=== PATIENT | female | born 1990 | race Hispanic/Latino ===

== ENCOUNTER 2017-01-20 19:00 | Inpatient (IN) | payer MEDICAID ==
[2017-01-20] MEDS ORDERED: POLYCILLIN/NS 2 GM/100 ML 2 GM/100 ML BAG IV ONE (19:14)
[2017-01-20] MEDS ORDERED: BRETHINE SUB-Q PRN (19:14)
[2017-01-20] MEDS ORDERED: MINERAL OIL PO PRN (19:14)
[2017-01-20] MEDS ORDERED: SUBLIMAZE IV PRN (19:14)
[2017-01-20] MEDS ORDERED: ePHEDrine SULFATE IV PRN ×2 (19:14→21:37)
[2017-01-20] MEDS ORDERED: ZOFRAN IV PRN (19:14)
[2017-01-20] MEDS ORDERED: XYLOCAINE 2% INFILTRATI ONE (19:14)
--- NOTE | 2017-01-20 19:28 | History and Physical Report ---
History of Present Illness Date of examination: 01/20/17 (pt arrived to Triage in active labor @ 38 weeks with GBS+) History of present illness: EDC Confirmation: 02/03/2017 Gestational Age: 13 1/7 weeks Past History : 3 Term Births: 2 Living Children: 2 Para: 2 Mult. Births: 0 Prev : 0 Prev. attempt? 0 Aborta: 0 Elect. Ab: 0 Spont. Ab: 0 Ectopics: 0 # 1 Delivery date: 07/07/2012 Weeks Gestation: 39 Delivery type: Vaginal Anesthesia type: epidural Delivery location: [facility] Infant Sex: male weight: 7.56 Comments: ?Antiphospholipid antibx syndrome # 2 Delivery date: 11/12/2014 Weeks Gestation: term Delivery type: Vaginal Anesthesia type: epidural Delivery location: [facility] Infant Sex: female weight: 7.13 Risk Factors: Smoked Tobacco Use: Never smoker Smokeless Tobacco Use: Never Passive smoke exposure: no Drug use: no HIV high-risk behavior: low risk Caffeine use: <1 drinks per day Alcohol use: no 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 ?APAS - no control, was not on blood thinners with last Past Surgical History: Reviewed history from 11/25/2011 and no changes required: Negative Past Surgical History Past Medical History Abnormal PAP: negative SERVANDO Exposure: negative Infertility: negative Uterine Anomaly: negative Uterine Surgery (not C/S): negative Other Gynecologic Problems: negative Social Hx: Patient is Smoking History: Patient has never smoked. Infection History Hx of STD: chlamydia HIV Risk Eval: low risk Hepatitis B Risk Eval: low risk Partner hx. of genital herpes: yes Varicella/Chicken Pox Status: Previous Disease Genetic History Congenital Heart Defect: Mom: no Dad: no Gabi Disease: Mom: no Dad: no Thalassemia Mom: no Dad: no Neural Tube Defect Mom: no Dad: no Down's Syndrome Mom: no Dad: no Arnoldo-Sachs Mom: no Dad: no Sickle Cell Disease/Trait Mom: no Dad: no Hemophilia Mom: no Dad: no Muscular Dystrophy Mom: no Dad: no Cystic Fibrosis Mom: no Dad: no [place] Chorea Mom: no Dad: no Mental Retardation Mom: no Dad: no Fragile X Mom: no Dad: no Other Genetic/Chromosomal Disorder Mom: no Dad: no Child w/other defect Mom: no Dad: no Enviromental Exposures Xray Exposure: no Medication, drug, or alcohol use since LMP: no Chemical/Other Exposure: no Exposure to Cat Liter: no Hx of Parvovirus (Fifth Disease): no Current Allergies: No known allergies Laboratory Results Date/Time Collected: 07/30/2016 Routine Urinalysis Leukocytes: negative Nitrite: negative Urobilinogen: negative Protein: Negative Blood: negative Ketone: negative Bilirubin: negative Glucose: Negative Urine HCG: positive Review of Systems General Denies fever, chills, sweats, anorexia, fatigue, weakness, malaise, weight loss and sleep disorder. Denies nausea, vomiting, headache, swelling of legs, abdominal pain, vaginal discharge, vaginal bleeding and contractions. Denies vaginal discharge, incontinence, dysuria, hematuria, urinary frequency, amenorrhea, menorrhagia, abnormal vaginal bleeding, pelvic pain, genital sores, decreased libido, painful periods, painful sex, urinary urgency, hot flashes, vaginal dryness, vaginal itching and vaginal odor. CV Denies chest pains, palpitations, syncope, dyspnea on exertion, orthopnea, PND and peripheral edema. Resp Denies cough, dyspnea at rest, excessive sputum, hemoptysis, wheezing and pleurisy. GI Denies nausea, vomiting, diarrhea, constipation, change in bowel habits, abdominal pain, melena, hematochezia, jaundice, gas/bloating, indigestion/ heartburn, dysphagia and odynophagia. Endo Denies cold intolerance, heat intolerance, polydipsia, polyphagia, polyuria and unusual weight change. Breast Denies left breast lump, right breast lump, nipple discharge, bloody discharge from nipple, breast pain, abnormal mammogram and breast enlargement. MS Denies back pain, joint pain, joint swelling, muscle cramps, muscle weakness, stiffness, arthritis, sciatica, restless legs, leg pain at night and leg pain with exertion. Derm Denies rash, itching, dryness and suspicious lesions. Neuro Denies paralysis, paresthesias, headache, seizures, tremors, vertigo, transient blindness, frequent falls, frequent headaches and difficulty walking. Psych Denies depression, anxiety, irritability and mood swings. Eyes Denies blurring, diplopia, irritation, discharge, vision loss, eye pain and photophobia. ENT Denies earache, ear discharge, tinnitus, decreased hearing, nasal congestion, nosebleeds, sore throat and hoarseness. Allergy Denies urticaria, allergic rash, hay fever and recurrent infections. Heme Denies abnormal bruising, bleeding and enlarged lymph nodes. 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/Vagina: No lesions, normal BUS, normal rugae Cervix: No lesions; no cervical motion tenderness Uterus: normal size and position, midline, mobile Fundal Ht: 10-12 FHT: 160s Adnexae: no masses or tenderness Rectovaginal: no masses or tenderness Past History - Obstetrical History Expected Date of Delivery: 02/03/17 Actual Gestation: 38 Week(s) 0 Day(s) : 3 Para: 2 Hx # Term Pregnancies: 2 Number of Living Children: 2 Medications and Allergies Allergies Allergy/AdvReac Type Severity Reaction Status Date / Time No Known Allergies Allergy Verified 11/08/14 22:11 Home Medications Medication Instructions Recorded Confirmed Last Taken Type Pnv95/Ferrous Fumarate/FA 1 tab PO DAILY 11/08/14 11/13/14 11/11/14 History [ Vitamins] one tablet Ibuprofen [Motrin] 800 mg PO TID PRN #30 tablet 11/14/14 Unknown Rx Active Meds: Active Medications Ephedrine Sulfate (Ephedrine Sulfate) 10 mg IV Q2M PRN PRN Reason: Hypotension Stop: 01/20/17 19:19 Fentanyl (Sublimaze) 100 mcg IV Q2H PRN PRN Reason: Labor Pain Ampicillin Sodium (Polycillin/Ns 1 Gm/50 Ml) 1 gm in 50 mls @ 100 mls/hr IV Q4HR FRANCK PRN Reason: Protocol Ampicillin Sodium (Polycillin/Ns 2 Gm/100 Ml) 2 gm in 100 mls @ 100 mls/hr IV ONCE ONE PRN Reason: Protocol Stop: 01/20/17 20:13 Lactated Ringer's (Lactated Ringers) 1,000 mls @ 125 mls/hr IV DIRECT FRANCK Oxytocin/Sodium Chloride (Pitocin/Ns 20 Unit/1000ml Drip) 20 units in 1,000 mls @ 125 mls/hr IV DIRECT FRANCK Oxytocin/Sodium Chloride (Pitocin/Ns 30 Unit/500ml) 30 units in 500 mls @ 4 mls /hr IV Q30MIN FRANCK PRN Reason: Protocol Lidocaine (Xylocaine 2%) 20 ml INFILTRATI ONCE ONE Stop: 01/20/17 19:15 Mineral Oil (Mineral Oil) 30 ml PO QHS PRN PRN Reason: Constipation Ondansetron HCl (Zofran) 4 mg IV Q8H PRN PRN Reason: Nausea And Vomiting Terbutaline Sulfate (Brethine) 0.25 mg SUB-Q ONCE PRN PRN Reason: Hyperstimulation/Hypertonicity Stop: 01/20/17 19:15 - Physical Exam Breasts: Positive: deferred Cardiovascular: Regular rate, Normal S1, Normal S2 Lungs: Positive: Normal air movement Abdomen: Positive: normal appearance, soft, normal bowel sounds. Negative: distention, tenderness Genitourinary (Female): Positive: normal external genitalia Vulva: both: normal Vagina: Positive: normal moisture. Negative: discharge Cervix: Negative: lesion, discharge Uterus: Positive: normal size, normal contour Adnexa: both: normal Anus/Rectum: Positive: normal perianal skin, heme negative. Negative: rectal mass, hemorrhoids Extremities: Positive: normal Deep Tendon Reflex Grade: Normal +2 - Obstetrical FHR: category 1 Uterine Contraction Monitor Mode: External Cervical Dilatation: 4.5 Cervical Effacement Percentage: 70 station: -1 Uterine Contraction Pattern: Regular Uterine Contraction Intensity: Moderate Results All other labs normal. Laboratory Data-Patient Name: JAMEEL GUILLEN Test Date Result Blood Type 08/16/2016 A Rh 08/16/2016 Positive Antibody Screen Rubella 08/16/2016 Serology (RPR) 08/16/2016 HBsAg 08/16/2016 Negative Hemoglobin 10/18/2016 10.9 Hematocrit 10/18/2016 33.2 Platelets 08/16/2016 290 [id number]/UL Chlamydia DNA 12/31/2016 Negative GC DNA/Culture 12/31/2016 Urine Culture 08/16/2016 Final report Group B Strep cult POSITIVE PAP 04/22/2014 Normal HIV 08/16/2016 AFP/Quad Screen Glucola Test 3hr GTT (Fasting) 1 hr 2 hr 3 hr OPTIONAL LABS-Patient Name:JAMEEL GUILLEN Test Date Result Varicella Ab Sickle Cell 08/16/2016 Negative PPD Fibronectin Cystic Fibrosis Parvovirus TSH Free T4 Hepatitis C ALT AST Uric Acid Creatinine 24 hr Urine Protein MELVINA Assessment and Plan 26yo @ 38+ weeks in active labor Pt was 3cm in the office SVE on arrival 4- 5cm GBS+ Orders in EMR aware of pt's arrival and pending delivery. - Patient Problems (1) 38 weeks gestation of Current Visit: Yes Status: Acute Plan to address problem: active labor Orders in EMR GBS+ Antibiotics started (2) Active labor Current Visit: Yes Status: Acute Plan to address problem: anticipate vaginal delivery (3) Group B streptococcal infection Current Visit: Yes Status: Acute Plan to address problem: Ampicillin per protocol started
[2017-01-20 19:43] LABS: Hematocrit 33.1 % (30.3-42.9); Mean Corpuscular HGB Conc 33 % (30-34); Mean Corpuscular Hemoglobin 29 pg (28-32); Mean Corpuscular Volume 88 fl (79-97); Platelet Count 259 K/mm3 (140-440); Red Blood Count 3.78 M/mm3 (3.65-5.03); Red Cell Distribution Width 13.1 % (13.2-15.2); White Blood Count 12.9 K/mm3 (4.5-11.0)
[2017-01-20] MEDS: LACTATED RINGERS 1,000 ML IV SCH ×3 (19:45→22:05)
[2017-01-20] MEDS ORDERED: PITOCin/NS 20 UNIT/1000ML DRIP 20 UNITS/1,000 ML BAG IV SCH (20:00)
[2017-01-20] MEDS: PITOCin/NS 30 UNIT/500ML 30 UNITS/500 ML BAG IV SCH ×2 (20:30→22:48)
[2017-01-20] MEDS ORDERED: ePHEDrine SULFATE ONE (21:08)
[2017-01-20] MEDS ORDERED: NARCAN 2 MG/2 ML IV PRN (21:37)
--- NOTE | 2017-01-20 21:37 | Anesthesia Consultation ---
Anesthesia Consult and Med Hx Date of service: 01/20/17 - Airway Anesthetic Teeth Evaluation: Good ROM Head & Neck: Adequate Mental/Hyoid Distance: Adequate Mallampati Class: Class II Intubation Access Assessment: Probably Good - Pulmonary Exam CTA: Yes - Cardiac Exam Cardiac Exam: RRR - Pre-Operative Health Status ASA Pre-Surgery Classification: ASA2 Proposed Anesthetic Plan: Epidural - Pulmonary Hx Asthma: Yes (Albuterol inhaler ( last week)) COPD: No Hx Pneumonia: No - Cardiovascular System Hx Hypertension: No - Central Nervous System Hx Seizures: No Hx Psychiatric Problems: No - Endocrine Hx Renal Disease: No Hx End Stage Renal Disease: No Hx Hypothyroidism: No Hx Hyperthyroidism: No - Hematic Hx Anemia: No Hx Sickle Cell Disease: No - Other Systems Hx Alcohol Use: No
[2017-01-20] MEDS ORDERED: fentaNYL-BUPIV 2 MCG/ML-0.125% 200 MCG/100 ML BAG EPIDURAL SCH (22:00)
[2017-01-20] MEDS ORDERED: POLYCILLIN/NS 1 GM/50 ML 1 GM/50 ML BAG IV SCH (23:17)
[2017-01-20] MEDS ORDERED: METHERGINE IM ONE (23:49)
[2017-01-20] MEDS ORDERED: CYTOTEC ONE (23:51)
[2017-01-21] MEDS ORDERED: METHERGINE IM ONE (00:17)
[2017-01-21] MEDS ORDERED: CYTOTEC PR ONE (00:17)
[2017-01-21] MEDS ORDERED: BENADRYL PO PRN (00:20)
[2017-01-21] MEDS ORDERED: TUCKS PAD TP PRN (00:20)
[2017-01-21] MEDS ORDERED: PHENERGAN PO PRN (00:20)
[2017-01-21] MEDS ORDERED: MILK OF MAGNESIA PO PRN (00:20)
[2017-01-21] MEDS ORDERED: DULCOLAX PR PRN (00:20)
[2017-01-21] MEDS ORDERED: TYLENOL PO PRN (00:20)
--- NOTE | 2017-01-21 00:35 | Procedure Note ---
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 Placed on mom's abdomen skin to skin Baby slow to respond despite drying and stimulation. Baby to warmer good cry and color with stimulation Again placed on mom's abdomen dusky color NICU called to eval baby. After lengthy assessment Baby now doing well good cry and color. Placenta and membrane del complete and intact, 3 vessel cord. Pit IVFs Bleeding heavy Large clots removed with uterine sweep. methergine IM given. Again with uterine massage. Bleeding returns moderate uterus boggy. Cytotec 800mcg SD, and uterine massage Bleeding now minimal. 7/, EBL 500, Wgt 8-2 Mom and baby remain LDR stable FF @ umb Lochia small. - A at 1 minute: 7 at 5 minutes: 8 Gender: Male (wgt 8-2)
[2017-01-21] MEDS: MOTRIN PO SCH ×3 (00:48→22:21)
[2017-01-21] MEDS ORDERED: SODIUM CHLORIDE FLUSH SYRINGE 10 ML IV NR (01:00)
[2017-01-21] MEDS: NORCO 5/325 PO PRN ×3 (02:41→19:45)
[2017-01-21 06:22] LABS: Hematocrit 29.3 % (30.3-42.9); Hemoglobin 9.7 gm/dl (10.1-14.3)
[2017-01-21] MEDS ORDERED: COLACE PO SCH (10:00)
--- NOTE | 2017-01-21 10:02 | Progress Note ---
Subjective Date of service: 01/21/17 Interval history: 1st day after normal vaginal delivery Patient is in the bed, comfortable. Pain is well under control.Ambulated well. No residual neurological deficit. No anesthesia complications Objective - Constitutional Vitals: Vital Signs - 12hr 01/20/17 01/20/17 01/20/17 22:03 22:08 22:11 Temperature Pulse Rate 87 78 80 Pulse Rate [ Right Brachial] Respiratory Rate Blood Pressure Blood Pressure [Right Arm] O2 Sat by Pulse 98 97 93 Oximetry 01/20/17 01/20/17 01/20/17 22:13 22:17 22:18 Temperature 98.7 F Pulse Rate 79 84 Pulse Rate [ Right Brachial] Respiratory 18 Rate Blood Pressure Blood Pressure [Right Arm] O2 Sat by Pulse 99 97 Oximetry 01/20/17 01/20/17 01/20/17 22:23 22:28 22:29 Temperature Pulse Rate 80 81 83 Pulse Rate [ Right Brachial] Respiratory Rate Blood Pressure 89/52 Blood Pressure [Right Arm] O2 Sat by Pulse 98 99 Oximetry 01/20/17 01/20/17 01/20/17 22:33 22:38 22:41 Temperature Pulse Rate 102 H 99 H 88 Pulse Rate [ Right Brachial] Respiratory Rate Blood Pressure 106/55 Blood Pressure [Right Arm] O2 Sat by Pulse 98 97 Oximetry 01/20/17 01/20/17 01/20/17 22:43 22:48 22:53 Temperature Pulse Rate 94 H 111 H 86 Pulse Rate [ Right Brachial] Respiratory Rate Blood Pressure Blood Pressure [Right Arm] O2 Sat by Pulse 97 98 97 Oximetry 01/20/17 01/20/17 01/20/17 22:58 23:03 23:08 Temperature Pulse Rate 106 H 106 H 99 H Pulse Rate [ Right Brachial] Respiratory Rate Blood Pressure Blood Pressure [Right Arm] O2 Sat by Pulse 98 97 96 Oximetry 01/20/17 01/20/17 01/20/17 23:11 23:13 23:18 Temperature Pulse Rate 96 H 95 H 100 H Pulse Rate [ Right Brachial] Respiratory Rate Blood Pressure 121/64 Blood Pressure [Right Arm] O2 Sat by Pulse 97 96 Oximetry 01/20/17 01/20/17 01/20/17 23:23 23:26 23:28 Temperature Pulse Rate 93 H 89 99 H Pulse Rate [ Right Brachial] Respiratory Rate Blood Pressure 101/58 Blood Pressure [Right Arm] O2 Sat by Pulse 97 98 Oximetry 01/20/17 01/20/17 01/20/17 23:33 23:41 23:51 Temperature Pulse Rate 107 H 108 H 111 H Pulse Rate [ Right Brachial] Respiratory Rate Blood Pressure 106/55 107/57 Blood Pressure [Right Arm] O2 Sat by Pulse 99 Oximetry 01/20/17 01/21/17 01/21/17 23:56 00:00 00:11 Temperature 99.0 F Pulse Rate 106 H 90 Pulse Rate [ Right Brachial] Respiratory 18 Rate Blood Pressure 118/58 123/62 Blood Pressure [Right Arm] O2 Sat by Pulse Oximetry 01/21/17 01/21/17 01/21/17 00:26 00:40 00:48 Temperature Pulse Rate 78 71 Pulse Rate [ Right Brachial] Respiratory 18 Rate Blood Pressure 117/59 117/71 Blood Pressure [Right Arm] O2 Sat by Pulse Oximetry 01/21/17 01/21/17 01/21/17 00:56 01:11 01:25 Temperature Pulse Rate 58 L 77 82 Pulse Rate [ Right Brachial] Respiratory Rate Blood Pressure 116/57 110/63 112/63 Blood Pressure [Right Arm] O2 Sat by Pulse Oximetry 01/21/17 01/21/17 02:41 04:00 Temperature 97.8 F Pulse Rate Pulse Rate [ 54 L Right Brachial] Respiratory 18 18 Rate Blood Pressure Blood Pressure 91/45 [Right Arm] O2 Sat by Pulse Oximetry - Labs CBC & Chem 7: 01/21/17 06:01 Labs: Abnormal lab results 01/20/17 01/21/17 Range/Units 19:20 06:01 WBC 12.9 H (4.5-11.0) K/mm3 Hgb 9.7 L (10.1-14.3) gm/dl Hct 29.3 L (30.3-42.9) % RDW 13.1 L (13.2-15.2) %
[2017-01-21] MEDS: LANSINOH TP PRN ×2 (11:31→11:57)
[2017-01-21] MEDS: FEOSOL PO SCH ×2 (11:56→22:19)
[2017-01-21] MEDS: PRENATAL VITAMIN PO SCH (11:56)
[2017-01-21 12:52] LABS: Hemoglobin 10.1 gm/dl (10.1-14.3)
[2017-01-21] MEDS: COLACE PO SCH ×2 (16:18→22:19)
[2017-01-22] MEDS: NORCO 5/325 PO PRN ×4 (01:43→22:16)
[2017-01-22] MEDS: MOTRIN PO SCH (05:57)
[2017-01-22] MEDS ORDERED: BOOSTRIX IM ONE (06:00)
[2017-01-22] MEDS ORDERED: M-M-R II VACCINE SUB-Q ONE (06:00)
[2017-01-22] MEDS: COLACE PO SCH ×2 (09:29→22:15)
[2017-01-22] MEDS: FEOSOL PO SCH ×2 (09:29→22:15)
[2017-01-22] MEDS: PRENATAL VITAMIN PO SCH (09:29)
--- NOTE | 2017-01-22 12:39 | Discharge Summary ---
Providers - Providers Date of Admission: 01/20/17 19:25 Date of discharge: 01/22/17 Attending physician: ALBINA SEGURA Primary care physician: VERNON AYALA Hospitalization Reason for admission: active labor Delivery: Episiotomy: none Laceration: none Other procedures: none complications: none Discharge diagnosis: IUP at term delivered baby: male Hospital course: Patient was admitted underwent a normal spontaneous vaginal delivery. Her course was benign. She was afebrile throughout her stay. Her day 1 hematocrit was 29.3%. Patient had no orthostatic symptoms . Condition at discharge: Good Disposition: DC-01 TO HOME OR SELFCARE - Discharge Diagnoses (1) Encounter for full-term uncomplicated delivery Status: Acute Plan - Provider Discharge Summary Activity: routine, no sex for 6 weeks Diet: routine Instructions: routine Additional instructions: [] Smoking cessation referral if applicable(refer to patient education folder for contact #) [] Refer to [facility] Book[facility] Call your doctor immediately for: * Fever > 100.5 * Heavy vaginal bleeding ( >1 pad per hour) * Severe persistent headache * Shortness of breath * Reddened, hot, painful area to leg or breast * Drainage or odor from incision. * Keep incision clean and dry at all times and follow doctor's instructions regarding bathing/showering Patient desires use condoms to prevent and is breast-feeding. Patient is to call office arrange for son's circumcision in 1-2 weeks - Follow up plan Follow up: VERNON AYALA MD [Primary Care Provider] - 7 Days
[2017-01-23] MEDS: MOTRIN PO SCH (00:02)
[2017-01-23] MEDS: NORCO 5/325 PO PRN ×2 (04:20→10:41)
[2017-01-23 09:05] VITALS: BP 102/50
[2017-01-23] MEDS: PRENATAL VITAMIN PO SCH (10:42)
[2017-01-23] MEDS: FEOSOL PO SCH (10:42)
[2017-01-23] MEDS: COLACE PO SCH (10:42)
== END 2017-01-23 17:00 | disposition home or self-care (01) | DRG 774 ==
LOC: TRG 19:00 → LD 19:25 → OB 01-21 02:32
PROVIDERS: ADMIT Obstetrics & Gynecology; ATTEND Obstetrics & Gynecology
PROC: 10E0XZZ Delivery of Products of Conception, External Approach (ICD-10-PCS; principal; 2017-01-21)
PROC: 3E0S3CZ (ICD-10-PCS; 2017-01-21)
PROC: 00HU33Z Insertion of Infusion Device into Spinal Canal, Percutaneous Approach (ICD-10-PCS; 2017-01-21)
PROC: 3E0234Z Introduction of Serum, Toxoid and Vaccine into Muscle, Percutaneous Approach (ICD-10-PCS; 2017-01-22)
DX: O98.82 Other maternal infectious and parasitic diseases complicating childbirth (principal); O99.52 Diseases of the respiratory system complicating childbirth; J45.909 Unspecified asthma, uncomplicated; Z3A.38 38 weeks gestation of pregnancy; Z37.0 Single live birth; Z23 Encounter for immunization; B95.1 Streptococcus, group B, as the cause of diseases classified elsewhere
CPT/HCPCS: 36415; 85014; 85018; 85027; 86592; 86850; 86900; 86901; 88307; 90471; 90715; 99211; A6250; G0463; J0290; J2210; J2590; J3010; J7120